=== PATIENT | female | born 1975 | race African-American/Black ===

== ENCOUNTER 2022-02-25 10:25 | Outpatient (CLI) | payer OTHER, SELFPAY ==
--- NOTE | 2022-02-25 10:30 | CRLHL7_ITS ---
For Patients: As a result of the Century Cures Act, medical imaging exams and procedure reports are released immediately into your electronic medical record. You may view this report before your referring provider. If you have questions, please contact your health care provider. BILATERAL SCREENING MAMMOGRAM WITH COMPUTER-AIDED DETECTION AND TOMOSYNTHESIS TECHNIQUE: CC, MLO and Implant displaced views were obtained. These mammographic images have been obtained using full-field digital technique. These mammographic images were interpreted with the benefit of computer-aided detection. Breast Tomosynthesis was used in this interpretation. COMPARISON FILM: 12/31/21, 02/28/20, 12/13/18. FINDINGS: There are scattered areas of fibroglandular density IMPRESSION: There is no radiographic evidence for malignancy. ASSESSMENT: BI-RADS Category 2: Benign RECOMMENDATION: Routine screening mammogram in 1 year. A lay language report of this examination will be provided to the patient. Jacoby Lester M.D. Diagnostic Radiologist [email or web address] Transcribed: 5:32 a.m. DW/Dictated by: Jacoby Lester MD @ 02/25/2022 12:43:00 PM (Electronically Signed)
== END 2022-02-25 10:26 | disposition home or self-care (01) ==
LOC: MAMMO 10:25
PROVIDERS: PCP Family Medicine; Visit Provider Family Medicine
DX: Z12.31 Encounter for screening mammogram for malignant neoplasm of breast (principal)
CPT/HCPCS: 77063; 77067

== ENCOUNTER 2022-07-13 10:26 | Outpatient (CLI) | payer OTHER, SELFPAY | END 2022-07-13 10:27 | disposition home or self-care (01) | PROVIDERS: PCP Family Medicine; Visit Provider Family Medicine | DX: E66.9 Obesity, unspecified (principal); F41.9 Anxiety disorder, unspecified; Z13.29 Encounter for screening for other suspected endocrine disorder; Z13.1 Encounter for screening for diabetes mellitus | CPT/HCPCS: 80048; 84439; 84443 ==

== ENCOUNTER 2022-09-12 19:41 | Emergency (ER) | payer OTHER, SELFPAY ==
[2022-09-12 20:01] VITALS: BP 158/105; PULSE 88; RESP 16; TEMP 36.4; O2SAT 100; BMI 32.7
--- NOTE | 2022-09-12 20:16 | ED_ITS ---
HPI - General Adult General Date Seen: 09/12/22 Chief complaint: Laceration/Wound Stated complaint: L hand pointer finger laceration Time Seen by Provider: 09/12/22 19:59 Source: patient Mode of arrival: ambulatory Limitations: no limitations History of Present Illness HPI narrative: Patient is a 47-year-old woman who presents for evaluation of of left index finger laceration. She was doing a craft projects at home and was using a saw which slipped and cut the dorsal surface of her index finger she denies any loss of function, numbness or tingling. Related Data Previous Rx's Medication Instructions Recorded phentermine 30 mg capsule 30 mg PO QDAY #30 caps 07/15/22 Allergies Allergy/AdvReac Type Severity Reaction Status Date / Time No Known Drug Allergies Allergy Verified 07/13/22 09:55 Review of Systems Status of ROS: Reports: 6 or more systems reviewed and unremarkable except as noted in History and below PFSH PFS Medical History History of gestational diabetes mellitus (GDM) ?Z86.32 - Personal history of gestational diabetes (ICD-10) History of cardiovascular stress test ?Z92.89 - Personal history of other medical treatment (ICD-10) Surgical History S/P tonsillectomy ?Z90.89 - Acquired absence of other organs (ICD-10) History of tubal ligation ?Z98.51 - Tubal ligation status (ICD-10) History of endometrial ablation ?Z98.890 - Other specified postprocedural states (ICD-10) History of breast augmentation ?Z98.82 - Breast implant status (ICD-10) History of abdominal hysterectomy ?Z90.710 - Acquired absence of both cervix and uterus (ICD-10) Family History Father Coronary artery disease Diabetes Mother Diabetes Maternal Grandmother Diabetes Sister Diabetes 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 Extremities: Examination of the left index finger shows a 1/2 cm laceration which extends over the PIP joint. She has full flexion extension at the PIP and the IP joints. Distal CMS is normal. Remainder hand is atraumatic. Wound extends into the soft tissue but does not appear to extend to deeper structures. Const: Vital Signs, click to edit/add: Vital Signs - 24 hr 09/12/22 20:01 09/12/22 20:30 09/12/22 20:30 Temperature 97.6 F Pulse Rate [Left P ulse Oximeter] 87 Pulse Rate [Right Pulse Oximeter] 88 87 Respiratory Rate 16 18 Blood Pressure [Ri ght Upper Arm] 158/105 H 144/80 H Pulse Oximetry 100 99 Oxygen Delivery Me thod Room Air Room Air Documenting provider has reviewed patient's vital signs: yes Course Course Hospital Course: Discussed management of this wound. She says she is admittedly very scared of shots, she really did not want stitches and asked if we could glue this. I did review with her that glue is often not very reliable on hands, particularly over a joint, but she is willing to wear a splint for few days and I think if we go that route she probably will have enough time for this to heal. Procedure note: Wound was cleaned, explored, no evidence of injury to deeper structures. Closed with Dermabond. Tube gauze was placed and then a finger splint applied. She tolerated this well without immediate complication. I have asked her to wear the splint for at least few days. Reviewed that once the splint is off the glue may not last for more than a day or 2. Return for any signs of infection. Vital Signs Vital signs: Initial Vital Signs Temperature 97.6 F 09/12/22 20:01 Temperature Source Temporal Artery Scan 09/12/22 20:01 Pulse Rate 88 09/12/22 20:01 Pulse Rhythm Regular 09/12/22 20:01 Respiratory Rate 16 09/12/22 20:01 Blood Pressure 158/105 H 09/12/22 20:01 Blood Pressure Mean 122 H 09/12/22 20:01 Blood Pressure Position Sitting 09/12/22 20:01 Pulse Oximetry 100 09/12/22 20:01 Oxygen Delivery Method Room Air 09/12/22 20:01 Vital Signs Temperature 97.6 F 09/12/22 20:01 Pulse Rate 88 09/12/22 20:01 Respiratory Rate 16 09/12/22 20:01 Blood Pressure 158/105 H 09/12/22 20:01 Pulse Oximetry 100 09/12/22 20:01 Oxygen Delivery Method Room Air 09/12/22 20:01 Temperature 97.6 F 09/12/22 20:01 Pulse Rate 87 09/12/22 20:30 Respiratory Rate 18 09/12/22 20:30 Blood Pressure 144/80 H 09/12/22 20:30 Pulse Oximetry 99 09/12/22 20:30 Oxygen Delivery Method Room Air 09/12/22 20:30 Discharge Plan Discharge Clinical Impression: Finger laceration Patient Disposition: Home, Self-Care Condition: Improved Instructions: Finger Laceration (ED) Prescriptions: No Action phentermine 30 mg capsule 30 mg PO QDAY Qty: 30 2RF Rx Instructions: must administer 2 hours after breakfast Follow Up/Referrals: Israel Shabazz MD [Primary Care Provider] -
[2022-09-12 20:30] VITALS: BP 144/80; PULSE 87; RESP 18; O2SAT 99
[2022-09-12] MEDS: TETANUS/DIPHTH/PERTUSSIS 0.5 ML SYRINGE IM (21:01)
== END 2022-09-12 21:31 | disposition home or self-care (01) ==
LOC: ED 20:59
PROVIDERS: Emergency Provider Emergency Medicine; PCP Family Medicine
DX: S61.211A Laceration without foreign body of left index finger without damage to nail, initial encounter (principal); W31.2XXA Contact with powered woodworking and forming machines, initial encounter
CPT/HCPCS: 12001; 90471; 90715; 99283

== ENCOUNTER 2023-01-04 13:01 | Outpatient (CLI) | payer OTHER, SELFPAY ==
--- NOTE | 2023-01-04 13:20 | CRLHL7_ITS ---
For Patients: As a result of the Century Cures Act, medical imaging exams and procedure reports are released immediately into your electronic medical record. You may view this report before your referring provider. If you have questions, please contact your health care provider. BILATERAL SCREENING MAMMOGRAM WITH COMPUTER-AIDED DETECTION AND TOMOSYNTHESIS TECHNIQUE: CC, MLO and Implant displaced views were obtained. These mammographic images have been obtained using full-field digital technique. These mammographic images were interpreted with the benefit of computer-aided detection. Breast Tomosynthesis was used in this interpretation. COMPARISON FILM: 02/25/22, 12/31/20, 02/28/20. FINDINGS: There are scattered areas of fibroglandular density IMPRESSION: There is no radiographic evidence for malignancy. ASSESSMENT: BI-RADS Category 2: Benign RECOMMENDATION: Routine screening mammogram in 1 year. A lay language report of this examination will be provided to the patient. Jacoby Lester M.D. Diagnostic Radiologist [email or web address] Transcribed: 1:08 p.joanne magdaleno/Dictated by: Jacoby Lester MD @ 01/05/2023 12:30:00 PM (Electronically Signed)
== END 2023-01-04 13:02 | disposition home or self-care (01) ==
LOC: MAMMO 13:02
PROVIDERS: PCP Family Medicine; Visit Provider Family Medicine
DX: Z12.31 Encounter for screening mammogram for malignant neoplasm of breast (principal)
CPT/HCPCS: 77063; 77067

== ENCOUNTER 2023-07-21 08:45 | Outpatient (CLI) | payer OTHER, SELFPAY | END 2023-07-21 08:46 | disposition home or self-care (01) | LOC: NFLDREF 07-24 15:49 | PROVIDERS: PCP Family Medicine; Referring Provider Family Medicine; Visit Provider Family Medicine | DX: Z13.1 Encounter for screening for diabetes mellitus (principal) | CPT/HCPCS: 82947 ==

== ENCOUNTER 2024-01-08 14:13 | Outpatient (CLI) | payer OTHER, SELFPAY ==
--- OUTSIDE RECORDS SUMMARY | 2024-01-08 14:15 | XMS_ITS | Clinical Summary ---
Author Organization [facility] Address [place], [place] [address] Care Team Providers Care Applications Trainer Name Role Phone Israel Shabazz MD Primary Care Provider [phone] Allergies No known active allergies Medications Medication Sig Dispensed Refills Start Date End Date Status sertraline (ZOLOFT) 100 mg tablet TK 1 T PO D 12/10/2019 Active polyethylene glycol-electrolyte (GOLYTELY) 236-22.74-6.74 -5.86 gram suspensionIndication s:Encounter for screening colonoscopy Drink 2 liters (half the bottle) the day before colonoscopy and 2 liters (remaining prep) 6 hours prior to colonoscopy appointment. 4000 mL 09/14/2022 Active Active Problems No known active problems Social History Tobacco Use Types Packs/Day Years Used Date Smoking Tobacco: Never Smokeless Tobacco: Never Tobacco Cessation:Counseling Given: Yes Social Connections Answer Date Recorded Frequency of Communication with Friends and Fami ly Not on file 03/13/2021 Financial Resource Strain Answer Date R ecorded Difficulty of Paying Living Expenses Not on file 03/13/2021 Difficulty of Paying Living Expenses Not on file 03/13/2021 Sex and Gender Information Value Date Recorded Sex Assigned at Not on file Gender Identity Not on file Sexual Orientation Not on file Obstetrics History Last Filed Vital Signs Vital Sign Reading Time Taken Comments Blood Pressure 133/77 10/26/2022 11:38 AM CDT Pulse 74 10/26/2022 11:38 AM CDT Temperature 36.7 ??C (98.1 ??F) 08/19/2020 3:17 PM CD T Respiratory Rate 14 10/26/2022 11:38 AM CDT Oxygen Saturation 98% 10/26/2022 11:38 AM CDT Inhaled Oxygen Concentration - - Weight 76.7 kg (169 lb 3.2 oz) 08/19/2020 3:17 P M CDT shoes on Height 155.4 cm (5' 1.18) 11/28/2019 3:10 PM CD T Body Mass Index 31.78 11/28/2019 3:10 PM CDT Plan of Treatment Health Maintenance Due Date Last Done Comments Tdap 1984 Depression screening for age 12+ 1985 HIV for age 15-65 1988 Hepatitis C screening for ag e 18-79 05/25/1991 Tetanus booster 1993 Pap test for age 21-65 1994 Lipids for age 45-75 2018 Mammogram for age 45-75 2018 BMI (ht and wt on same day) for age 18+ 11/27/2020 11/28/2019 Zoster (shingles) series for age 50+ (1 of 2) 05/25/2023 COVID-19 vaccine series (2023- season) 2023 12/11/2020, 11/20/2020 Influenza for age 50-64 11/12/2023 Colonoscopy through age 75 10/26/203210/26, 10/26/2022 Pneumococcal series for age 6-64 Aged Out No longer eligible b ased on patient's age to complete this topic Procedures Procedure Name Priority Date/Time Associated Diagnosis Comments COLONOSCOPY 10/26/2022 10:24 AM CDT from Last 3 Months or Most Recently Relevant to Health Maintenance Results * COLONOSCOPY (10/26/2022 10:24 AM CDT) 10/26/2022 10:2 4 AM CDT Narrative Transcriptions Refugio Yates MD - 10/26/2022 11:29 AM CDT Patient Name: Kimmy Chairez Procedure Date: 10/26/2022 Gender: Female Date of : 1975 Admit Type: Outpatient Procedure: Colonoscopy Proceduralist: Refugio Yates MD , Jane Shelton RN (Nurse), Page Lin (Nurse) Indications/Pre-Op Diagnosis: Screening for colorectal malignant neoplasm, This is the patient's first colonoscopy Medications: Fentanyl 100 micrograms IV, Midazolam 2 mgIV, The level of sedation administered wasmoderate Procedure Description: The patient had risks, benefits and alternatives explained to andgave informed consent. The patient had a stable cardiopulmonary status and judged an adequate candidate for conscious sedation. The PCF-H190L [id number] was passed through the anus and advanced to the cecum, identified by appendiceal orifice and ileocecal valve. The colonoscopy was performed without difficulty. The patient toleratedthe procedure well. The quality of the bowel preparation was good. The ileocecal valve, appendiceal orifice, and rectum were photographed. Complications: No immediate complications. Estimated Blood Loss & Specimen: Estimated blood loss: none. Specimen collected - None Findings: The perianal and digital rectal examinations were normal. The entire examined colon appeared normal. Impressions/Post-Op Diagnosis: - The entire examined colon is normal. - No specimens collected. Recommendation: - Patient has a contact number available for emergencies. The signsand symptoms of potential delayed complications were discussed with the patient. Return to normal activities tomorrow. Written discharge instructions were provided to the patient. - Resume previous diet. - Continue present medications. - Repeat colonoscopy in 10 years for screening purposes. Moderate Sedation: A time out was performed before the procedure. Moderate (conscious) sedation was administered by the endoscopy nurse and supervised bythe endoscopist. The following parameters were monitored: oxygensaturation, heart rate, blood pressure, EKG, CO2, respiratory rate, adequacy of pulmonary ventilation and reponse to care. Please refer to the patient's medical record flowsheets and nursing notes for moderate sedation details. Total physician intraservice time was 15 minutes. Refugio Yates MD 10/26/2022 11:29:30 AM This report has been signed electronically. Note Initiated On: 10/26/2022 10:24 AM Procedure Code(s): --- Professional --- 07356, Colonoscopy, flexible; diagnostic, including collection of specimen(s) bybrushing or washing, when performed (separateprocedure) Diagnosis Code(s): --- Professional --- Z12.11, Encounter for screening formalignant neoplasm of colon CPT copyright 2021 [employer]. All rights reserved. The codes documented in this report are preliminary and upon washer cutter reviewmay be revised to meet current compliance requirements. Scope In: 11:08:23 AM Scope Withdrawal Time 0 hours 7 minutes 16 seconds Scope Out: 11:22:42 AM Refugio Yates MD PROCEDURE ORD from Last 3 Months or Most Recently Relevant to Health Maintenance Care Teams Applications Trainer Relationship Specialty Start Date End Date Israel Shabazz MD PCP - General Family Practice 11/28/19
--- NOTE | 2024-01-08 15:00 | CRLHL7_ITS ---
For Patients: As a result of the Century Cures Act, medical imaging exams and procedure reports are released immediately into your electronic medical record. You may view this report before your referring provider. If you have questions, please contact your health care provider. BILATERAL SCREENING MAMMOGRAM WITH COMPUTER-AIDED DETECTION AND TOMOSYNTHESIS TECHNIQUE: CC, MLO and Implant displaced views were obtained. These mammographic images have been obtained using full-field digital technique. These mammographic images were interpreted with the benefit of computer-aided detection. Breast Tomosynthesis was used in this interpretation. COMPARISON FILM: 01/04/23, 02/25/22, 12/31/20. FINDINGS: There are scattered areas of fibroglandular density IMPRESSION: There is no radiographic evidence for malignancy. ASSESSMENT: BI-RADS Category 2: Benign RECOMMENDATION: Routine screening mammogram in 1 year. A lay language report of this examination will be provided to the patient. Jacoby Lester M.D. Diagnostic Radiologist [email or web address] EV/[email or web address] Transcribed: 1:38 p.joanne [email or web address]/Dictated by: Jacoby Lester MD @ 01/09/2024 8:55:00 AM (Electronically Signed)
== END 2024-01-08 14:14 | disposition home or self-care (01) ==
LOC: MAMMO 14:14
PROVIDERS: PCP Family Medicine; Visit Provider Family Medicine
DX: Z12.31 Encounter for screening mammogram for malignant neoplasm of breast (principal)
CPT/HCPCS: 77063; 77067